=== PATIENT | female | born 1995 | race Caucasian/White ===

== ENCOUNTER 2020-07-27 20:25 | Emergency (ER) | payer MEDICAID ==
[~2020-07-27] VITALS: Ht 167.6 cm; Wt 105.0 kg
[2020-07-27 21:01] LABS: CLARITY URINE CLEAR (CLEAR); COLOR URINE RED (YELLOW); KETONES URINE NEGATIVE (NEGATIVE); LEUKOCYTE ESTERASE URINE NEGATIVE (NEGATIVE); NITRITE URINE NEGATIVE (NEGATIVE); OCCULT BLOOD URINE 3+ (NEGATIVE); PH URINE 6.5 (4.5-8.0); PROTEIN URINE TRACE (NEGATIVE); UROBILINOGEN URINE 0.2 E.U./dL (0.2-1.0)
[2020-07-27 22:02] VITALS: BP 122/64
[2020-07-27 22:56] LABS: BASOPHILS % 0.3 % (0.0-2.0); EOSINOPHILS % 0.9 % (0.0-5.0); HEMATOCRIT. 30.2 % (36.0-48.0); HEMOGLOBIN. 9.6 g/dL (12.0-16.0); LYMPHOCYTES % 52.2 % (20.0-50.0); MEAN CORPUSCULAR HEMOGLOBIN 21.3 pg (28.0-32.0); MEAN CORPUSCULAR VOLUME 67.2 fL (81.0-99.0); MEAN PLATELET VOLUME 7.1 fl (7.4-10.4); MONOCYTES % 4.9 % (2.0-8.0); NEUTROPHILS % 41.7 % (40.0-76.0); PLATELET 365 x1000/uL (130-400); RED CELL DISTRIBUTION WIDTH 19.6 % (11.6-14.6)
[2020-07-27 23:00] LABS: CHLORIDE 108 mEq/L (98-107)
[2020-07-27 23:11] LABS: B-HCG QUANTITATIVE < 1 mIU/mL (<3)
[2020-07-27 23:17] LABS: PLATELET ESTIMATE NORMAL
== END 2020-07-27 23:35 | disposition home or self-care (01) ==
LOC: ER 20:25
DX: N93.9 Abnormal uterine and vaginal bleeding, unspecified (principal)
CPT/HCPCS: 36415; 76830; 76856; 80053; 81003; 84702; 85025; 86850; 86900; 99284